=== PATIENT | female | born 1965 | race Two or more races ===

== ENCOUNTER 2019-06-09 06:04 | Day surgery (SDC) | payer OTHER ==
[~2019-06-09 06:04] MED LIST: ZABETA PO
[2019-06-09] MEDS ORDERED: MOTRIN IB200 MG PO (10:30)
== END 2019-06-09 15:20 | disposition home or self-care (01) ==
LOC: CIR.AMB 06:04
DX: N84.0 Polyp of corpus uteri (principal); N71.1 Chronic inflammatory disease of uterus